=== PATIENT | male | born 1985 | race Caucasian/White ===

== ENCOUNTER 2017-08-23 21:58 | Emergency (ER) | payer OTHER ==
[~2017-08-23] VITALS: Ht 172.7 cm; Wt 117.2 kg
[~2017-08-23 21:58] MED LIST: COZAAR25 MG PO; LISINOPRIL-HCT1 EACH PO; PERCOCET 5/31 TABLET PO
[2017-08-23] MEDS ORDERED: LISINOPRIL20 MG PO (22:08)
[2017-08-23 23:13] LABS: BASOPHIL (%) 0.4 % (0-1); BASOPHIL COUNT 0.1 K/uL (0-0.1); EOSINOPHIL (%) 0.6 % (0-5); EOSINOPHIL COUNT 0.1 K/uL (0-0.3); HEMATOCRIT 46.3 % (38.0-50.0); HEMOGLOBIN 16.1 G/DL (12.5-16.6); IMMATURE GRANULOCYTE (%) 0.6 % (0.0-0.7); LYMPHOCYTE (%) 26.9 % (15-42); MCH 30.3 PG (29.0-34.0); MCHC 34.8 G/DL (30.0-36.0); MONOCYTE (%) 7.8 % (3-12); MONOCYTE COUNT 0.9 K/uL (0-0.8); NEUTROPHIL (%) 63.7 % (45-76); NEUTROPHIL COUNT 7.2 K/uL (1.8-6.4); PLATELET COUNT 227 K/uL (156-360); RBC DIS.WIDTH-CV 12.9 % (11.8-14.6); RBC DIS.WIDTH-SD 40.8 % (39-53); RED BLOOD COUNT 5.32 M/uL (4.00-5.50); WHITE BLOOD COUNT 11.3 K/uL (4.1-10.2)
[2017-08-23 23:24] LABS: ALBUMIN 4.5 g/dL (3.2-4.8); CHLORIDE 104 mEq/L (99-109); POTASSIUM 4.3 mEq/L (3.7-5.4); SODIUM 136 mEq/L (136-147)
[2017-08-23 23:27] LABS: GLUCOSE 107 mg/dL (70-99); TOTAL PROTEIN 7.7 g/dL (6.4-8.3)
[2017-08-23 23:29] LABS: TOTAL BILIRUBIN 0.5 mg/dL (0.0-1.0)
[2017-08-23 23:30] LABS: ALKALINE PHOSPHATASE 59 IU/L (3-129); CREATININE 0.9 mg/dL (0.6-1.3); GFR ESTIMATE (CALCULATED) > 59 mL/min/ (58.99-99999)
[2017-08-23 23:32] LABS: AST (GOT) 31 IU/L (2-34); UREA NITROGEN (BUN) 18 mg/dL (9-23)
[2017-08-23 23:33] LABS: ALT (GPT) 78 IU/L (3-49)
[2017-08-23 23:35] LABS: TROP-I INTERPRETATION NEGATIVE; TROPONIN-I < 0.01 ng/mL (0.0-0.30)
[2017-08-24 01:54] LABS: TROP-I INTERPRETATION NEGATIVE; TROPONIN-I < 0.01 ng/mL (0.0-0.30)
[2017-08-24 02:20] VITALS: BP 127/80
== END 2017-08-24 02:22 | disposition home or self-care (01) ==
LOC: EME 21:58
PROVIDERS: Emergency Medicine
DX: M79.602 Pain in left arm (principal); R07.89 Other chest pain; I10 Essential (primary) hypertension; Z87.891 Personal history of nicotine dependence
CPT/HCPCS: 71046; 80053; 84484; 85025; 93005; 99281; 99284; J7040

== ENCOUNTER 2017-08-25 22:34 | Emergency (ER) | payer OTHER ==
[~2017-08-25] VITALS: Ht 172.7 cm; Wt 115.9 kg
[~2017-08-25 22:34] MED LIST changes: +LISINOPRIL20 MG PO
[2017-08-25 23:09] LABS: HEMATOCRIT 47.3 % (38.0-50.0); HEMOGLOBIN 16.9 G/DL (12.5-16.6); MCH 30.6 PG (29.0-34.0); MCHC 35.7 G/DL (30.0-36.0); MCV 85.7 FL (86-99); PLATELET COUNT 278 K/uL (156-360); RBC DIS.WIDTH-CV 12.8 % (11.8-14.6); RBC DIS.WIDTH-SD 39.8 % (39-53); RED BLOOD COUNT 5.52 M/uL (4.00-5.50); WHITE BLOOD COUNT 12.9 K/uL (4.1-10.2)
[2017-08-25 23:21] LABS: CHLORIDE 101 mEq/L (99-109); SODIUM 136 mEq/L (136-147)
[2017-08-25 23:22] LABS: GLUCOSE 117 mg/dL (70-99); POTASSIUM 3.4 mEq/L (3.7-5.4)
[2017-08-25 23:26] LABS: GFR ESTIMATE (CALCULATED) > 59 mL/min/ (58.99-99999)
[2017-08-25 23:27] LABS: UREA NITROGEN (BUN) 17 mg/dL (9-23)
[2017-08-25 23:34] LABS: TROP-I INTERPRETATION NEGATIVE; TROPONIN-I < 0.01 ng/mL (0.0-0.30)
[2017-08-25 23:51] LABS: ALBUMIN 4.9 g/dL (3.2-4.8)
[2017-08-25 23:54] LABS: TOTAL PROTEIN 8.5 g/dL (6.4-8.3)
[2017-08-25 23:56] LABS: ALKALINE PHOSPHATASE 67 IU/L (3-129)
[2017-08-25 23:58] LABS: TOTAL BILIRUBIN 0.7 mg/dL (0.0-1.0)
[2017-08-25 23:59] LABS: AST (GOT) 37 IU/L (2-34); DIRECT BILIRUBIN 0.2 mg/dL (0.0-0.3)
[2017-08-26] LABS: ALT (GPT) 89 IU/L (3-49); LIPASE 46 U/L (1.0-51.0)
[2017-08-26 00:41] LABS: D-DIMER ELISA < 150.00 ng/mLDDU (<230)
[2017-08-26 01:39] LABS: TROP-I INTERPRETATION NEGATIVE; TROPONIN-I < 0.01 ng/mL (0.0-0.30)
[2017-08-26 01:56] VITALS: BP 109/72
== END 2017-08-26 02:00 | disposition home or self-care (01) ==
LOC: EME 22:34
PROVIDERS: Emergency Medicine
DX: R07.9 Chest pain, unspecified (principal); K29.00 Acute gastritis without bleeding; K76.0 Fatty (change of) liver, not elsewhere classified; I10 Essential (primary) hypertension; Z87.891 Personal history of nicotine dependence
CPT/HCPCS: 71046; 76705; 80048; 80076; 83690; 84484; 85027; 85379; 93005; 99281; 99284